=== PATIENT | female | born 1990 | race Hispanic/Latino ===

== ENCOUNTER 2017-09-26 06:05 | Emergency (ER) | payer OTHER | END 2017-09-26 06:26 | disposition home or self-care (01) | LOC: EDH 06:05 | DX: Z02.83 Encounter for blood-alcohol and blood-drug test (principal) ==

== ENCOUNTER 2017-10-06 11:08 | Emergency (ER) | payer OTHER ==
[2017-10-06 13:21] LABS: APPEARANCE,URINE Clear (CLEAR); BILIRUBIN,URINE Negative (NEGATIVE); COLOR,URINE Yellow (YELLOW); GLUCOSE, URINE (UA) Negative (NEGATIVE); HCG,QUAL RESULT NEGATIVE (NEGATIVE); KETONES,URINE Negative (NEGATIVE); LEUKOCYTE ESTERASE ,URINE Trace (NEGATIVE); NITRATE,URINE Negative (NEGATIVE); OCCULT BLOOD,URINE Nonhemolyzed Trace (NEGATIVE); PROTEIN,URINE Negative (NEGATIVE); UROBILINOGEN,URINE 0.2 mg/dL (0.2-1.0)
[2017-10-06 13:44] LABS: BACTERIA,URINE Rare /HPF (None Seen); RBC,URINE 0-1 /HPF (0-1); WBC,URINE 0-1 /HPF (0-1)
== END 2017-10-06 13:43 | disposition home or self-care (01) ==
LOC: EDH 11:08
DX: N76.0 Acute vaginitis (principal); N93.9 Abnormal uterine and vaginal bleeding, unspecified; N93.8 Other specified abnormal uterine and vaginal bleeding
CPT/HCPCS: 81001; 81025; 87486; 87797